=== PATIENT | female | born 1965 | race Caucasian/White ===

== ENCOUNTER 2019-05-21 02:21 | Emergency (ER) | payer MEDICARE, MEDICAID ==
[~2019-05-21] VITALS: Ht 170.2 cm; Wt 65.8 kg
[2019-05-21 02:40] VITALS: BP 151/84
[2019-05-21] MEDS ORDERED: Lidocaine 1% 10mg/ml/EPI 0.01mg/ml 30ml INJ ONE (03:00)
--- NOTE | 2019-05-21 03:06 | Emergency Room Report ---
History of Present Illness General Chief Complaint: Multiple Trauma/Fall Source: Patient Present Illness HPI She is a 54-year-old female presents after reported fall. Patient reports having a fall downstairs. She stated injury occurred approximate 45 minutes prior to arrival. She denies any loss of consciousness. She reports hitting the back of her head. She also reports hitting the upper and lower back. She states that she had prior history of chronic neck pain is currently in pain management. She additionally reports having pain to her hips which she states she has had similar in the past. She states she gets frequent injections for pain to these areas. Allergies: Coded Allergies: AZITHROMYCIN (Verified Allergy, Unknown, 05/21/19) SULFAMETHOXAZOLE (Verified Allergy, Unknown, 05/21/19) TRIMETHOPRIM (Verified Allergy, Unknown, 05/21/19) Patient History Past Medical History: see triage record Reviewed Nursing Documentation: PMH: Agreed; PSxH: Agreed Nursing Documentation-PMH Past Medical History: No History, Except For Hx Cardiac Problems: No - HERNIA IN NECK, SPINA BIFIDA, HYPOTHYROIDISM Review of Systems All Other Systems: negative except mentioned in HPI Physical Exam Vital Signs Date Time Temp Pulse Resp B/P (MAP) Pulse Ox O2 Delivery O2 Flow Rate FiO2 05/21/19 02:32 98.8 81 18 151/84 (106) 97 Room Air Sp02 EP Interpretation: reviewed, normal General Appearance: normal inspection, well appearing, no apparent distress, alert, GCS 15, non-toxic Head: atraumatic ENT: normal ENT inspection, hearing grossly normal, normal voice Neck: normal inspection, full range of motion, supple, no bony tend Respiratory: normal inspection, lungs clear, normal breath sounds, no respiratory distress, no retraction, no wheezing Cardiovascular #1: regular rate, rhythm, no edema Gastrointestinal: normal inspection, normal bowel sounds, non tender, soft, no guarding, no hernia Genitourinary: no CVA tenderness Musculoskeletal: normal inspection, back normal, normal range of motion Neurologic: alert, motor strength/tone normal, fender finisher III-XII nml as tested, oriented, oriented x3, responsive, speech normal, normal inspection Psychiatric: normal inspection, judgement/insight normal, mood/affect normal Skin: laceration - right forearm laceration flap 1 cm Procedures Laceration/Wound Repair Laceration/Wound Repair : Consent: Verbal Wound Location: upper extremity Wound's Depth, Shape: flap Wound Length (cm): 1 Wound Explored: clean Irrigated w/ Saline (ccs): 30 Betadine Prep?: Yes Anesthesia: Lidocaine w/ Epi Volume Anesthetic (ccs): 4 Wound Debrided: minimal Wound Repaired With: sutures Suture Size/Type: 4:0 Number of Sutures: 4 Layer Closure?: No Sterile Dressing Applied?: Yes Patient Tolerated: Well Complications: None Medical Decision Making Diagnostic Impression: Primary Impression: Fall Additional Impression: Laceration of forearm ER Course Patient presented after a fall. Differential diagnosis include was not limited to fracture, contusion, head injury among others. Patient was noted to be awake and alert. She does not appear to have any neurologic deficits however given recent trauma CT imaging was ordered. Lumbar spine and thoracic spine x- rays were also ordered as well as right forearm x-ray. X-rays right forearm 2 views interpreted by me showed normal bony alignment without an fracture. Patient appears to be stable for discharge. Laceration was repaired as per procedure note.Patient tolerated this well. Patient was advised to follow-up with primary care physician for recheck. Last Vital Signs Date Time Temp Pulse Resp B/P (MAP) Pulse Ox O2 Delivery O2 Flow Rate FiO2 05/21/19 02:32 98.8 81 18 151/84 (106) 97 Room Air Khadar Trujillo MD May 21, 2019 03:06
[2019-05-21] MEDS ORDERED: HYDROcodone/Acetamin 5/325 tab ORAL ONE (03:15)
[2019-05-21] MEDS ORDERED: Neosporin Oint Ud Pkt TOPIC ONE (04:15)
--- NOTE | 2019-05-21 04:38 | Diagnostic Imaging Report ---
Indication: Forearm painPain Findings: 2 views of the right forearm were obtained. No acute fractures, malalignment, erosions or periostitis are identified. There are mid forearm soft tissue densities noted. Nature of this is not known but the could represent calcification. IMPRESSION: No acute fracture. Soft tissue densities mid forearm of indeterminate nature
[2019-05-21] MEDS ORDERED: CEPHALEXIN500 MG ORAL (04:43)
[2019-05-21] MEDS ORDERED: Tetanus/Diptheria/Pertussis IM ONE (04:45)
--- NOTE | 2019-05-21 04:48 | Diagnostic Imaging Report ---
Indication: Back pain Comparison: None Findings: 2 views of the thoracic spine were obtained. No acute fracture is identified. Alignment is normal. Bones are osteopenic. Degenerative endplate spurs are noted. IMPRESSION: No acute findings
--- NOTE | 2019-05-21 05:35 | Diagnostic Imaging Report ---
Indication: Headache Technique: Contiguous 5 mm thick transaxial imaging of the head obtained in a Siem[employer] Sensation [address] scanner. Soft tissue and bone windows generated. Automatic Exposure Control was utilized. Total Dose length Product (DLP): [address] Dose Index Volume (CTDIvol): 62.7 mGy Comparison: none Findings: The size and configuration of the cortical sulci, basal cisterns, and ventricles are within normal limits for age. There is no mass effect, midline shift, or edema identified. There is no evidence of acute hemorrhage or abnormal intra-axial or extra-axial fluid collections. The bones and soft tissues are unremarkable. Impression: No mass effect, edema or acute bleed. The CT scanner at [facility] is accredited by the [employer] and the scans are performed using dose optimization techniques as appropriate to a performed exam including Automatic Exposure control.
[2019-05-21 05:48] VITALS: BP 151/84
--- NOTE | 2019-05-21 10:28 | Diagnostic Imaging Report ---
Indication: Back pain Comparison: None Findings: 3 views of the lumbar spine were obtained. There is a L4-5 anterolisthesis with narrowing of intervertebral discs. There is transitional anatomy with the partial sacralization of the L5. Loss of height of several of the lower thoracic vertebra noted with endplate osteophytes. These fractures are age indeterminate. The bones are osteopenic. Hypertrophic facets noted in the lower lumbar spine. IMPRESSION: Mild compression fracture deformities involving lower thoracic vertebra age-indeterminate. Transitional anatomy at the lumbosacral junction. L5 is partially sacralized. L4-5 anterolisthesis and degenerative disc disease. Lower lumbar facet arthropathy
== END 2019-05-21 05:48 | disposition home or self-care (01) ==
LOC: EMR 03:39
DX: S51.811A Laceration without foreign body of right forearm, initial encounter (principal); W19.XXXA Unspecified fall, initial encounter; Y92.9 Unspecified place or not applicable; E03.9 Hypothyroidism, unspecified; Z88.2 Allergy status to sulfonamides; Z88.8 Allergy status to other drugs, medicaments and biological substances; M25.552 Pain in left hip; M25.551 Pain in right hip; Z23 Encounter for immunization
CPT/HCPCS: 70450; 72020; 72070; 90471; 90715; 99284